=== PATIENT | male | born 1955 | race Caucasian/White ===

== ENCOUNTER → 2017-03-10 | Outpatient (CLI) | payer OTHER ==
[2017-03-10 12:32] LABS: HEMOGLOBIN 14.9 g/dL (14.1-18.0); LYMPH # 2.8 K/mm3 (0.7-4.5); LYMPH % 35.3 % (10-50)
[2017-03-10 12:42] LABS: BUN 14 mg/dL (7-18)
[2017-03-10 12:45] LABS: GFR (ESTIMATED) 86 ML/MIN (>60)
[2017-03-11 16:36] LABS: Creatinine, Urine 186.1 mg/dL (Not Estab.); Microalbumin, Urine 5.1 ug/mL (Not Estab.)
== END ==
LOC: LAB 11:43
PROVIDERS: Family Medicine
DX: I10 Essential (primary) hypertension (principal)